=== PATIENT | female | born 1990 | race Caucasian/White ===

== ENCOUNTER 2019-04-21 09:26 | Emergency (ER) | payer MEDICAID ==
[~2019-04-21] VITALS: Ht 160 cm; Wt 86.2 kg
[2019-04-21 09:28] VITALS: BP 116/85
--- NOTE | 2019-04-21 09:33 | NUR ---
PT BIBA TO BED 04.
--- NOTE | 2019-04-21 09:37 | NUR ---
BIBA C/O PAIN TO ARTURO ARM, R KNEE &MID UPPER CHEST S/P TC X TODAY. 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 PD WAS ON SCENE. PMH:DENIES. PATIENT STATES PAIN OF 7/10 AT THIS TIME. PATIENT POSITIONED FOR COMFORT; HOB ELEVATED; BEDRAILS UP X1; BED DOWN. ER MD MADE AWARE OF PT STATUS.
--- NOTE | 2019-04-21 10:15 | NUR ---
Patient being evaluated by DR ZAVALA at bedside.
[2019-04-21] MEDS ORDERED: KETOROLAC 60 MG/2 ML VIAL IM ONE (10:20)
[2019-04-21 11:14] VITALS: BP 113/65
--- NOTE | 2019-04-21 11:14 | NUR ---
Patient discharged with v/s stable. Written and verbal after care instructions given and explained. Patient alert, oriented and verbalized understanding of instructions. Ambulatory with steady gait. All questions addressed prior to discharge. ID band removed. Patient advised to follow up with PMD. Rx of MOTRIN & NORCO given. Patient educated on indication of medication including possible reaction and side effects. Opportunity to ask questions provided and answered.
== END 2019-04-21 11:14 | disposition home or self-care (01) ==
LOC: MED 09:26
DX: M79.10 Myalgia, unspecified site (principal); R07.89 Other chest pain; Z88.0 Allergy status to penicillin
CPT/HCPCS: 96372; 99283; J1885